=== PATIENT | female | born 1945 | race Caucasian/White ===

== ENCOUNTER 2016-12-25 21:52 | Emergency (ER) | payer MEDICAID, MEDICARE ==
[2016-12-25 22:27] LABS: ABSOLUTE BASOPHILS # (AUTO) 0.1 10^3/uL (0.0-0.2); ABSOLUTE EOSINOPHILS # (AUTO) 0.5 10^3/uL (0.0-0.6); ABSOLUTE LYMPHOCYTES (AUTO) 3.1 10^3/uL (0.5-4.7); ABSOLUTE MONOCYTES (AUTO) 0.4 10^3/uL (0.1-1.4); ABSOLUTE NEUT (AUTO) 3.9 10^3/uL (1.7-8.2); BASOPHILS % (AUTO) 0.9 % (0-2); HEMATOCRIT 43.2 % (36.0-47.0); HEMOGLOBIN 14.6 g/dL (12.0-15.5); HGB HCT DIFFERENCE 0.6; LYMPHOCYTES % (AUTO) 38.7 % (13-45); MEAN CORPUSCULAR HEMOGLOBIN 31.4 pg (27.0-33.4); MEAN CORPUSCULAR HGB CONC 33.7 g/dL (32.0-36.0); MEAN CORPUSCULAR VOLUME 93 fl (80-97); MONOCYTES % (AUTO) 5.5 % (3-13); RED BLOOD COUNT 4.64 10^6/uL (3.72-5.28); SEGMENTED NEUTROPHILS % (AUTO) 48.9 % (42-78)
[2016-12-25 22:45] LABS: ALANINE AMINOTRANSFERASE 26 U/L (9-52); ALKALINE PHOSPHATASE 169 U/L (38-126); ANION GAP 10 (5-19); ASPARTATE AMINO TRANSFERASE 25 U/L (14-36); BILIRUBIN,DIRECT 0.3 mg/dL (0.0-0.4); BILIRUBIN,TOTAL 0.4 mg/dL (0.2-1.3); BLOOD UREA NITROGEN 14 mg/dL (7-20); CALCIUM 10.9 mg/dL (8.4-10.2); CARBON DIOXIDE 22 mmol/L (22-30); CHLORIDE 107 mmol/L (98-107); CREATINE KINASE 56 U/L (30-135); CREATININE RESULT 0.67 mg/dL (0.52-1.25); GLUCOSE 102 mg/dL (75-110); POTASSIUM 3.8 mmol/L (3.6-5.0); SODIUM 139.3 mmol/L (137-145); TOTAL PROTEIN 6.9 g/dL (6.3-8.2)
[2016-12-25 22:57] LABS: CREATINE KINASE MB 1.07 ng/mL (<4.55); TROPONIN I 0.019 ng/mL
--- NOTE | 2016-12-25 23:00 | RADIOLOGY REPORT (SQ) ---
EXAM DESCRIPTION: CHEST SINGLE VIEW COMPLETED DATE/TIME: 12/25/2016 10:45 pm REASON FOR STUDY: cp COMPARISON: None. EXAM PARAMETERS: NUMBER OF VIEWS: One view. TECHNIQUE: Single frontal radiographic view of the chest acquired. RADIATION DOSE: NA LIMITATIONS: None. FINDINGS: LUNGS AND PLEURA: No consolidation, masses or pneumothorax. Mild left basilar scarring. No significant pleural effusion. MEDIASTINUM AND HILAR STRUCTURES: No masses. Contour normal. HEART AND VASCULAR STRUCTURES: Heart normal in size. Normal vasculature. BONES: No acute findings. HARDWARE: Surgical clips at the GE junction. OTHER: No other significant finding. IMPRESSION: Mild left basilar scarring. TECHNICAL DOCUMENTATION: JOB ID: [id number]
[2016-12-25] MEDS ORDERED: ALPRAZOLAM 0.5 MG TABLET PO ONE (23:04)
--- NOTE | 2016-12-25 23:05 | ER Document Report ---
ED Cardiac - General Chief Complaint: Arrhythmia Stated Complaint: CHEST PAIN Time Seen by Provider: 12/25/16 22:16 Mode of Arrival: Ambulatory Information source: Patient TRAVEL OUTSIDE OF THE [place] IN LAST 30 DAYS: No - HPI Patient complains to provider of: Chest pain Was the onset of pain: Sudden Is the pain a: New problem Chest pain location: Substernal Quality of pain: Achy Severity now: Moderate Severity at worst: Moderate Pain level currently: 3 Chest pain precipitating factors: Mental Exertion/Stress Cardiac risk factors: Hypertension Associated symptoms: Shortness of breath Exacerbated by: Emotional stress Relieved by: Nothing Similar symptoms previously: Yes Recently seen / treated by doctor: No Notes: Patient is a 71-year-old female with a history of hypertension, who presents to the emergency room complaining of left-sided chest pain that started while having an argument with her daughter, she reports shortness of breath associated with it as well as palpitations, she is quite tearful at time of exam , reporting that she and her daughter were arguing about finances, this is happened before with emotional stress the patient denies ever having had an actual heart attack - Related Data Allergies/Adverse Reactions: aspirin Allergy (Unknown, Verified 04/08/16 14:34) Past Medical History - General Information source: Patient - Social History Smoking Status: Never Smoker Frequency of alcohol use: None Drug Abuse: None Family History: Reviewed & Not Pertinent Renal/ Medical History: Reports: Hx Kidney Stones Past Surgical History: Reports: Hx Appendectomy, Hx Cholecystectomy, Hx Hysterectomy - Immunizations Hx Diphtheria, Pertussis, Tetanus Vaccination: Yes Review of Systems - Review of Systems Constitutional: No symptoms reported EENT: No symptoms reported Cardiovascular: Chest pain Respiratory: Short of breath Gastrointestinal: No symptoms reported Genitourinary: No symptoms reported Female Genitourinary: No symptoms reported Musculoskeletal: No symptoms reported Skin: No symptoms reported Hematologic/Lymphatic: No symptoms reported Neurological/Psychological: See HPI -: Yes All other systems reviewed and negative Physical Exam - Vital signs Vitals: Resp 12 12/25/16 22:07 Interpretation: Normal - General General appearance: Appears well, Alert - HEENT Head: Normocephalic, Atraumatic Eyes: Normal Pupils: PERRL - Respiratory Respiratory status: No respiratory distress Chest status: Nontender Breath sounds: Normal Chest palpation: Normal - Cardiovascular Rhythm: Regular Heart sounds: Normal auscultation Murmur: No - Abdominal Inspection: Normal Distension: No distension Bowel sounds: Normal Tenderness: Nontender Organomegaly: No organomegaly - Back Back: Normal, Nontender - Extremities General upper extremity: Normal inspection, Nontender, Normal color, Normal ROM , Normal temperature General lower extremity: Normal inspection, Nontender, Normal color, Normal ROM , Normal temperature, Normal weight bearing. No: Elijah's sign - Neurological Neuro grossly intact: Yes Cognition: Normal Orientation: AAOx4 [place] Coma Scale Eye Opening: Spontaneous Mehran Coma Scale Verbal: Oriented Mehran Coma Scale Motor: Obeys Commands [place] Coma Scale Total: 15 Speech: Normal Motor strength normal: LUE, RUE, LLE, RLE Sensory: Normal - Psychological Associated symptoms: Tearful - Skin Skin Temperature: Warm Skin Moisture: Dry Skin Color: Normal Course - Re-evaluation Re-evalutation: 12/26/16 03:31 Resting comfortably, symptoms are resolved, cardiac enzymes 2 are negative, remaining evaluation is unremarkable, sometimes likely related to stress as patient was having an argument with her daughter when symptoms started, patient will be discharged home with instructions for follow-up and advised to return if symptoms worsen, patient acknowledges understanding and agreement with this plan - Vital Signs Vital signs: Temp Pulse Resp BP Pulse Ox 73 17 112/55 L 99 12/25/16 22:41 12/26/16 03:14 12/26/16 02:21 12/26/16 03:14 - Laboratory Result Diagrams: 12/25/16 22:09 12/25/16 22:09 Laboratory results interpreted by me: 12/25/16 22:09 Calcium 10.9 H Alkaline Phosphatase 169 H - Diagnostic Test Radiology reviewed: Image reviewed, Reports reviewed - EKG Interpretation by Tn EKG shows normal: Sinus rhythm Rate: Normal Rhythm: NSR Discharge - Discharge Clinical Impression: Anxiety Chest pain Qualifiers: Chest pain type: unspecified Qualified Code(s): R07.9 - Chest pain, unspecified Condition: Stable Disposition: HOME, SELF-CARE Instructions: Chest Pain of Unclear Cause ([facility]), Anxiety ([facility]) Additional Instructions: Follow up with your primary care provider in one to 2 days. Return to the emergency room immediately if symptoms worsen or any additional concerns. Prescriptions: Alprazolam [Xanax 0.5 mg Tablet] 0.5 mg PO QHS #20 tab
--- NOTE | 2016-12-26 10:00 | EKG REPORT ---
SEVERITY:- BORDERLINE ECG - SINUS RHYTHM ATRIAL PREMATURE COMPLEX PROBABLE LEFT ATRIAL ABNORMALITY : Confirmed by: Jewels Gutierrez 26-Dec-2016 09:59:21
[2016-12-26 11:34] VITALS: BP 147/81
[2016-12-26] MEDS ORDERED: ACETAMINOPHEN 325 MG TABLET PO ONE (11:48)
[2016-12-26] MEDS ORDERED: ACETAMINOPHEN 325 MG TABLET ONE (11:51)
== END 2016-12-26 11:59 | disposition home or self-care (01) ==
LOC: ER 21:52
DX: R07.9 Chest pain, unspecified (principal); F41.9 Anxiety disorder, unspecified; I10 Essential (primary) hypertension; R06.02 Shortness of breath
CPT/HCPCS: 93005; 99285; 36415; 82553; 82550; 85025; 80053; 84484; 71010; 93010; A9270 ×2

== ENCOUNTER 2017-02-15 14:00 | Emergency (ER) | payer MEDICARE ==
[2017-02-15] MEDS ORDERED: MORPHINE SULFATE 10 MG/ML INJ IV ONE (14:19)
[2017-02-15] MEDS ORDERED: ONDANSETRON HCL INJ/PF 4 MG/2 ML SDV IV ONE (14:19)
--- NOTE | 2017-02-15 14:20 | ER Document Report ---
ED Medical Screen (RME) - General Chief Complaint: Nausea/Vomiting Stated Complaint: DIZZINESS Time Seen by Provider: 02/15/17 14:19 Notes: Patient presents with severe upper abdominal pain. She states this radiates to her back. She is nauseous but no vomiting. No problems with bowel movements or urine. She states she feels dizzy and has been unable to eat. TRAVEL OUTSIDE OF THE [place] IN LAST 30 DAYS: No - Related Data Allergies/Adverse Reactions: aspirin Allergy (Unknown, Verified 04/08/16 14:34) Past Medical History Renal/ Medical History: Reports: Hx Kidney Stones. Denies: Hx Peritoneal Dialysis Past Surgical History: Reports: Hx Appendectomy, Hx Cholecystectomy, Hx Hysterectomy - Immunizations Hx Diphtheria, Pertussis, Tetanus Vaccination: Yes Physical Exam - Vital signs Vitals: Resp BP Pulse Ox 20 153/88 H 93 02/15/17 14:06 02/15/17 14:06 02/15/17 14:06 Course - Vital Signs Vital signs: Temp Pulse Resp BP Pulse Ox 81 20 153/88 H 93 02/15/17 14:08 02/15/17 14:06 02/15/17 14:06 02/15/17 14:06
[2017-02-15] MEDS: NORMAL SALINE 1000 ML 1,000 ML IV PRN ×5 (14:36→18:04)
[2017-02-15 14:41] LABS: ABSOLUTE BASOPHILS # (AUTO) 0.1 10^3/uL (0.0-0.2); ABSOLUTE EOSINOPHILS # (AUTO) 0.1 10^3/uL (0.0-0.6); ABSOLUTE LYMPHOCYTES (AUTO) 2.5 10^3/uL (0.5-4.7); ABSOLUTE MONOCYTES (AUTO) 0.4 10^3/uL (0.1-1.4); ABSOLUTE NEUT (AUTO) 4.5 10^3/uL (1.7-8.2); BASOPHILS % (AUTO) 0.8 % (0-2); EOSINOPHILS % (AUTO) 0.8 % (0-6); HEMATOCRIT 50.3 % (36.0-47.0); HGB HCT DIFFERENCE 0.7; LYMPHOCYTES % (AUTO) 32.9 % (13-45); MEAN CORPUSCULAR HEMOGLOBIN 30.9 pg (27.0-33.4); MEAN CORPUSCULAR HGB CONC 33.8 g/dL (32.0-36.0); MEAN CORPUSCULAR VOLUME 92 fl (80-97); MONOCYTES % (AUTO) 5.6 % (3-13); RED BLOOD COUNT 5.49 10^6/uL (3.72-5.28); SEGMENTED NEUTROPHILS % (AUTO) 59.9 % (42-78); WHITE BLOOD COUNT 7.6 10^3/uL (4.0-10.5)
--- NOTE | 2017-02-15 14:52 | ER Document Report ---
ED GI/ - General Chief Complaint: Nausea/Vomiting Stated Complaint: DIZZINESS Time Seen by Provider: 02/15/17 14:19 Information source: Patient TRAVEL OUTSIDE OF THE [place] IN LAST 30 DAYS: No - HPI Notes: 02/15/17 14:50 71-year-old female presents with severe epigastric pain persisting for about 1 week slowly worsening. This is sharp it radiates to her back. She has had nausea and fairly significant vomiting initially which is now just dry heaving as she really cannot take any significant oral intake in. She has some dizziness with it denies any chest pain or new breathing difficulty. She has some chronic diarrhea but states this is actually a little better. She has had no melena or hematochezia. Denies hematemesis. She does report a history of gastric ulcers but has not required surgery for that. She has had a hysterectomy appendectomy and cholecystectomy in the past. Denies pancreatitis. No fever or cough. She has found no alleviating symptoms. Pain started prior to the vomiting. She also notes on review of systems that she has some intermittent headache that is been fairly severe. She does have a history of orthostatic hypotension is on Midodrine as well as Florinef. 02/15/17 15:06 - Related Data Allergies/Adverse Reactions: aspirin Allergy (Unknown, Verified 04/08/16 14:34) Home Medications: Current Home Medications Duloxetine HCl [Duloxetine HCl] 30 mg PO TID 02/15/17 [History] Fludrocortisone Acetate [Fludrocortisone Acetate] 1 dose PO DAILY 02/15/17 [ History] Levothyroxine Sodium [Levothyroxine Sodium] 25 mg PO DAILY 02/15/17 [History] Midodrine HCl [Midodrine HCl] 1 tab PO BID 02/15/17 [History] Potassium Citrate [Potassium Citrate ER] 15 mg PO BID 02/15/17 [History] Past Medical History - Social History Smoking Status: Former Smoker - Quit many years ago Frequency of alcohol use: None Family History: Reviewed & Not Pertinent Patient has suicidal ideation: No Patient has homicidal ideation: Yes Renal/ Medical History: Reports: Hx Kidney Stones. Denies: Hx Peritoneal Dialysis Past Surgical History: Reports: Hx Appendectomy, Hx Cholecystectomy, Hx Hysterectomy - Immunizations Hx Diphtheria, Pertussis, Tetanus Vaccination: Yes Review of Systems - Review of Systems -: Yes All other systems reviewed and negative Physical Exam - Vital signs Vitals: Resp BP Pulse Ox 20 153/88 H 93 02/15/17 14:06 02/15/17 14:06 02/15/17 14:06 Interpretation: Normal, Hypertensive - Notes Notes: GENERAL: VS as per nursing doc. Well-appearing, well-nourished and appears moderately uncomfortable HEAD: Atraumatic, normocephalic. EYES: Pupils equal round and reactive to light, extraocular movements intact, sclera anicteric, no conjunctival injection or discharge. ENT: Nares patent, oropharynx clear without exudates, moist mucous membranes. NECK: Normal range of motion, supple without lymphadenopathy. LUNGS: Breath sounds clear to auscultation bilaterally and equal. No wheezes rales or rhonchi. HEART: Regular rate and rhythm without murmurs. Femoral pulses are equal ABDOMEN: Soft, minimal epigastric tenderness, pain seems out of proportion to her tenderness, normoactive bowel sounds. No guarding, no rebound. No pulsatile masses appreciated. No [place] sign. BACK: No CVA tenderness. EXTREMITIES: Normal range of motion, no calf tenderness, no edema. NEUROLOGICAL: Cranial nerves grossly intact. Normal speech. Normal sensory and motor exams. No gross cerebellar abnormalities. PSYCH: Normal mood, normal affect. SKIN: Warm, dry, normal turgor, no lesions noted. Course - Re-evaluation Re-evalutation: 02/15/17 15:11 Patient's pain seems very out of proportion to her exam. Will pursue a CTA of the abdomen and pelvis to evaluate her vascular supply. Clinically I do not note a ruptured AAA but this would be on the differential diagnosis. 02/15/17 17:54 Reviewed findings with the patient which included a calcium of 12.1, denies calcium of 1.35. She has no history of hypocalcemia that I can tell but she does have a history of renal stones. Her alkaline phosphatase is high. She is using no Tums or other calcium supplements. Her head CT was essentially negative as well as her abdominal CT. We will give her another liter of fluids as she is feeling much better and recheck her to see if she feels good enough to go home with an essentially negative workup. I am not convinced calcium issues are her complete underlying problem. She does give a history of partial gastrectomy which she did not seem to understand when I asked her about surgery for ulcers in the past. Would still be on the differential as well. 02/15/17 19:42 Patient has continued to do well. She has no current headache or abdominal pain , nausea is better and she is tolerating p.o. She does seem to have quite a memory deficit as apparently she now takes calcium on occasion which I discussed with the patient family she will need to limit as well continue a PPI. She will return if worsening otherwise. Patient requested Xanax as she states this has helped in the past. - Vital Signs Vital signs: Temp Pulse Resp BP Pulse Ox 98.2 F 81 17 149/89 H 99 02/15/17 20:01 02/15/17 14:08 02/15/17 20:01 02/15/17 20:01 02/15/17 20:01 - Laboratory Result Diagrams: 02/15/17 14:30 02/15/17 14:30 Laboratory results interpreted by me: 02/15/17 02/15/17 02/15/17 14:30 14:30 15:30 RBC 5.49 H Hgb 17.0 H Hct 50.3 H Sodium 134.0 L Chloride 93 L Calcium 12.1 H* Ionized Calcium Isacc 1.35 H AST 37 H Alkaline Phosphatase 188 H Total Protein 8.5 H Urine Blood Ur Leukocyte Esterase 02/15/17 18:30 RBC Hgb Hct Sodium Chloride Calcium Ionized Calcium Isacc AST Alkaline Phosphatase Total Protein Urine Blood SMALL H Ur Leukocyte Esterase SMALL H - EKG Interpretation by Ne EKG shows normal: Sinus rhythm - Rate 61, no obvious ischemia. Inferior J-point elevation and suspected LAE. PAC. No significant change from prior 12/25/2016. Discharge - Discharge Clinical Impression: Abdominal pain, Vomiting, Hypercalcemia Condition: Good Disposition: HOME, SELF-CARE Prescriptions: Alprazolam [Xanax 0.5 mg Tablet] 0.5 mg PO Q6HP PRN #10 tab PRN Reason: Anxiety Hyoscyamine Sulfate [Levsin 0.125 Tablet] 0.125 - 0.25 mg PO Q6HP PRN #12 tablet PRN Reason: For Abdominal Pain Promethazine HCl [Phenergan 25 mg Tablet] 1 tab PO Q6H PRN #15 tablet PRN Reason: Forms: Elevated Blood Pressure Referrals: MANOLO CABALLERO FNP-C [Primary Care Provider] - Follow up tomorrow
[2017-02-15 14:55] LABS: ALANINE AMINOTRANSFERASE 27 U/L (9-52); ALBUMIN 4.9 g/dL (3.5-5.0); ALKALINE PHOSPHATASE 188 U/L (38-126); ANION GAP 13 (5-19); ASPARTATE AMINO TRANSFERASE 37 U/L (14-36); BILIRUBIN,DIRECT 0.4 mg/dL (0.0-0.4); BILIRUBIN,TOTAL 0.6 mg/dL (0.2-1.3); BLOOD UREA NITROGEN 8 mg/dL (7-20); CARBON DIOXIDE 28 mmol/L (22-30); CHLORIDE 93 mmol/L (98-107); CREATININE RESULT 0.66 mg/dL (0.52-1.25); GLUCOSE 92 mg/dL (75-110); LIPASE 206.2 U/L (23-300); POTASSIUM 3.7 mmol/L (3.6-5.0); TOTAL PROTEIN 8.5 g/dL (6.3-8.2)
[2017-02-15] MEDS ORDERED: PANTOPRAZOLE SODIUM 40 MG VIAL IV ONE (15:05)
[2017-02-15 15:06] LABS: CALCIUM 12.1 mg/dL (8.4-10.2)
[2017-02-15] MEDS ORDERED: HYDROMORPHONE HCL INJ/PF 2 MG/ML AMPULE IV ONE (15:08)
[2017-02-15] MEDS ORDERED: NORMAL SALINE 1000 ML 1,000 ML IV ONE ×2 (15:13→17:58)
[2017-02-15 15:40] LABS: CREATINE KINASE MB 0.82 ng/mL (<4.55); TROPONIN I 0.028 ng/mL
--- NOTE | 2017-02-15 16:12 | RADIOLOGY REPORT (SQ) ---
EXAM DESCRIPTION: CT HEAD WITHOUT COMPLETED DATE/TIME: 02/15/2017 4:01 pm REASON FOR STUDY: REDDY COMPARISON: None. TECHNIQUE: Axial images acquired through the brain without intravenous contrast. Images reviewed wi th bone, brain and subdural windows. Images stored on PACS. All CT scanners at this facility use dose modulation, iterative reconstruction, and/or weight based d osing when appropriate to reduce radiation dose to as low as reasonably achievable (ALARA). [facility]: Dose Right [facility]: CareDose [facility]: Dose Right [facility]: Teradose 4D [facility]: [employer] RADIATION DOSE: Up-to-date CT equipment and radiation dose reduction techniques were employed. CTDIv ol: 64.6 mGy. DLP: 1034 mGy-cm. mGy. LIMITATIONS: None. FINDINGS: VENTRICLES: Prominent. CEREBRUM: No masses. No hemorrhage. No midline shift. Areas of low density in the white matter mos t likely due to chronic micro-vascular ischemic change. No evidence for acute infarction. CEREBELLUM: No masses. No hemorrhage. No alteration of density. No evidence for acute infarction. EXTRAAXIAL SPACES: Mild age-related involutional change. No fluid collections. No masses. ORBITS AND GLOBE: No intra- or extraconal masses. Normal contour of globe without masses. CALVARIUM: No fracture. PARANASAL SINUSES: No fluid or mucosal thickening. SOFT TISSUES: No mass or hematoma. OTHER: No other significant finding. IMPRESSION: MILD CHRONIC CHANGES OF ATROPHY AND MICROVASCULAR ISCHEMIA. NO ACUTE PROCESS. TECHNICAL DOCUMENTATION: JOB ID: [id number] Quality ID # [id number]: Final reports with documentation of one or more dose reduction techniques (e.g., Au tomated exposure control, adjustment of the mA and/or kV according to patient size, use of iterative reconstruction technique) 2010 [employer]- All Rights Reserved
--- NOTE | 2017-02-15 16:17 | RADIOLOGY REPORT (SQ) ---
EXAM DESCRIPTION: CTA ABDOMEN/PELVIS W WO COMPLETED DATE/TIME: 02/15/2017 4:02 pm REASON FOR STUDY: severe abd pain/vomit COMPARISON: None. TECHNIQUE: CT scan of the abdominal aorta extending to the iliac bifurcation performed with intraven ous contrast using helical scanning technique with dynamic intravenous contrast injection. Images rev iewed with lung, soft tissue, and bone windows. Reconstructed coronal and sagittal MPR images reviewe d. All images stored on PACS. Advanced 3D imaging as volume rendering, MIPS, SSD performed? yes All CT scanners at this facility use dose modulation, iterative reconstruction, and/or weight based d osing when appropriate to reduce radiation dose to as low as reasonably achievable (ALARA). [facility]: Dose Right [facility]: CareDose [facility]: Dose Right [facility]: Teradose 4D [facility]: [employer] CONTRAST TYPE AND DOSE: contrast/concentration: Isovue 370.00 mg/ml; Total Contrast Delivered: 100.0 ml; Total Saline Delivered: 60.0 ml RENAL FUNCTION: Creatinine 0.66 LIMITATIONS: None. FINDINGS: POST-CONTRAST IMAGING: AORTA AND VESSELS: No aneurysm. No dissection. Renal arteries, SMA, celiac without stenosis. There i s some mild ectasia of the abdominal aorta with vascular calcifications. LUNG BASES: No significant findings. No nodules or infiltrates. LIVER: Normal size. No masses or dilated ducts. SPLEEN: Normal size. No focal lesions. PANCREAS: No masses. No significant calcifications. No adjacent inflammation or peripancreatic fluid collections. Pancreatic duct not dilated. GALLBLADDER: Status post cholecystectomy ADRENAL GLANDS: No significant masses or asymmetry. RIGHT KIDNEY AND URETER: No mass, calculi or urinary tract obstruction. LEFT KIDNEY AND URETER: No mass, calculi or urinary tract obstruction. RETROPERITONEUM: No retroperitoneal adenopathy, hemorrhage or masses. BOWEL AND PERITONEAL CAVITY: No masses or inflammatory changes. No free fluid or peritoneal masses. Postsurgical changes are identified in the right abdomen. APPENDIX: Not identified ABDOMINAL WALL: No masses. No hernias. BONY STRUCTURES: No significant or acute findings. 3-D IMAGING: Confirms the above findings. OTHER: No other significant finding. IMPRESSION: NO ABDOMINAL AORTIC ANEURYSM, DISSECTION OR SIGNIFICANT STENOSIS. NO SIGNIFICANT FINDING S IN THE ABDOMEN. TECHNICAL DOCUMENTATION: JOB ID: [id number] Quality ID # [id number]: Final reports with documentation of one or more dose reduction techniques (e.g., Au tomated exposure control, adjustment of the mA and/or kV according to patient size, use of iterative reconstruction technique) 2010 [employer]- All Rights Reserved
[2017-02-15] MEDS ORDERED: DIPHENHYDRAMINE HCL 50 MG/ML VIAL IV ONE ×2 (16:33→17:58)
[2017-02-15 18:41] LABS: APPEARANCE,URINE CLEAR; BILIRUBIN,URINE NEGATIVE (NEGATIVE); GLUCOSE, URINE NEGATIVE (NEGATIVE); KETONES,URINE NEGATIVE (NEGATIVE); LEUKOCYTE ESTERASE,URINE SMALL (NEGATIVE); NITRITE,URINE NEGATIVE (NEGATIVE); PROTEIN,URINE NEGATIVE (NEGATIVE); URINE SPECIFIC GRAVITY 1.021; UROBILINOGEN,URINE NEGATIVE mg/dL (<2.0)
[2017-02-15] MEDS ORDERED: ALPRAZOLAM 0.5 MG TABLET PO ONE (19:44)
[2017-02-15 21:17] VITALS: BP 149/89
--- NOTE | 2017-02-16 05:57 | EKG REPORT ---
SEVERITY:- OTHERWISE NORMAL ECG - SINUS RHYTHM ATRIAL PREMATURE COMPLEX : Confirmed by: Erika Dawson MD 16-Feb-2017 05:56:22
== END 2017-02-15 20:21 | disposition home or self-care (01) ==
LOC: ER 14:00
DX: R11.2 Nausea with vomiting, unspecified (principal); E83.52 Hypercalcemia; R10.13 Epigastric pain; I95.1 Orthostatic hypotension; Z79.899 Other long term (current) drug therapy; R42 Dizziness and giddiness; R19.7 Diarrhea, unspecified; R51 Headache; Z87.11 Personal history of peptic ulcer disease; Z90.49 Acquired absence of other specified parts of digestive tract; Z90.710 Acquired absence of both cervix and uterus; Z88.6 Allergy status to analgesic agent; Z87.891 Personal history of nicotine dependence; Z87.442 Personal history of urinary calculi; Z90.3 Acquired absence of stomach [part of]
CPT/HCPCS: 93005; 96376; 99284; 96361; 96374; 96375; 36415; 82553; 82550; 83690; 85025; 80053; 81001; 84484; 83605; 82330; 70450; 74174; 93010; A9270; J1200; J2270; J1170; C9113; J2405; J7030; S0164

== ENCOUNTER → 2017-03-02 | Outpatient (CLI) | payer MEDICARE ==
--- NOTE | 2017-03-02 16:55 | RADIOLOGY REPORT (SQ) ---
EXAM DESCRIPTION: MRI LUMBAR SPINE WITHOUT COMPLETED DATE/TIME: 03/02/2017 12:34 pm REASON FOR STUDY: OTHER INTERVERTEBRAL DISC DEGENERATION M51.36 OTHER INTERVERTEBRAL DISC DEGENERAT ION, LUMBAR REGION COMPARISON: None. TECHNIQUE: Sagittal and Axial imaging includes T1, T2, STIR and gradient echo sequences. Coronal T2/ HASTE imaging. LIMITATIONS: None. FINDINGS: VISUALIZED UPPER ABDOMEN: Limited evaluation. No acute or suspicious findings suggested. SEGMENTATION: No transitional anatomy. The lowest well-developed disc space is labeled L5-S1. ALIGNMENT: Mild degenerative convex leftward lumbar curvature VERTEBRAE: Intact. BONE MARROW: Hemangioma L3 vertebral body. Fatty reactive endplate changes at L1-2. DISC SIGNAL: Diffuse decreased T2 weighted intervertebral disc signal. Significant disc space loss o f height at L1-2 and L2-3. POSTERIOR ELEMENTS: Generally intact. No pars defect evident. HARDWARE: None in the spine. CORD AND CONUS: Normal in size and signal intensity. Conus at the L1 level. SOFT TISSUES: No aortic aneurysm seen. No bulky retroperitoneal adenopathy or mass. No paraspinal mas s or fluid. T10-11: Small central posterior disc protrusion/herniation without cord impingement best shown on sa gittal image 9. This may be chronic. No significant foraminal narrowing. T11-12: No central or foraminal stenosis. Mild bilateral facet arthropathy. T12-L1: No central or foraminal stenosis. Mild bilateral facet arthropathy. L1-L2: Broad diffuse posterior disc bulge and bony spurring and mild bilateral facet and ligament hyp ertrophy causes borderline central canal narrowing. There is moderate right and minimal left foramin al narrowing without exiting nerve root impingement. L2-L3: Mild diffuse posterior disc bulging and moderate bilateral facet and ligament hypertrophy is p resent. Borderline central canal narrowing. Moderate bilateral foraminal narrowing without exiting L2 nerve root impingement. L3-L4: Mild diffuse posterior disc bulging left greater than right and bulky bilateral facet hypertro phy left greater than right. Mild central canal stenosis. No significant right foraminal narrowing. Mild left foraminal narrowing without definite exiting L3 nerve root impingement. L4-L5: Broad diffuse posterior disc bulge and bulky bilateral facet and ligament hypertrophy. Border line central canal narrowing. Mild bilateral inferior foraminal narrowing without exiting L4 nerve r oot impingement. L5-S1: Broad diffuse posterior disc bulge, moderate bilateral facet hypertrophy. No central stenosis . Moderate right, mild left foraminal narrowing. SACRUM: Visualized upper sacrum intact. OTHER: No other significant findings. IMPRESSION: Diffuse degenerative changes as above TECHNICAL DOCUMENTATION: JOB ID: [id number] [employer]- All Rights Reserved
== END ==
LOC: RAD 10:48
PROVIDERS: ATTEND Physician Assistant
DX: M51.37 Other intervertebral disc degeneration, lumbosacral region (principal)
CPT/HCPCS: 72148